=== PATIENT | female | born 1950 | race Caucasian/White ===

== ENCOUNTER 2018-03-11 05:46 | Day surgery (SDC) | payer MEDICARE, OTHER ==
[2018-03-11] MEDS: IV RINGERS,LACTATED 1000ML 1,000 ML IV (06:55)
[2018-03-11] MEDS ORDERED: PROCHLORPERAZINE 10 MG/2 ML VIAL. IV (07:00)
[2018-03-11] MEDS ORDERED: LIDOCAINE 1% PF 2 ML VIAL. ID (07:00)
[2018-03-11] MEDS ORDERED: MORPHINE SULFATE 2 MG/ML DISP.SYRIN. IV (07:00)
[2018-03-11] MEDS ORDERED: ONDANSETRON PF 4 MG/2 ML VIAL. IV (07:00)
[2018-03-11] MEDS ORDERED: HYDROmorphone 2 MG/ML VIAL IV (07:00)
[2018-03-11] MEDS ORDERED: fentaNYL PF VIAL 100 MCG/2 ML VIAL IV (07:00)
[2018-03-11] MEDS ORDERED: fentaNYL PF VIAL 100 MCG/2 ML VIAL (07:23)
[2018-03-11] MEDS ORDERED: MIDAZOLAM HCL/PF 2 MG/2 ML VIAL. (07:23)
[2018-03-11] MEDS ORDERED: LIDOCAINE 1% PF 5 ML VIAL. (07:24)
[2018-03-11] MEDS ORDERED: PROPOFOL 20 ML IV (07:24)
[2018-03-11] MEDS ORDERED: DEXAMETHASONE SOD PHOS 20 MG/5 ML VIAL. (08:20)
[2018-03-11] MEDS ORDERED: ONDANSETRON PF 4 MG/2 ML VIAL. (08:20)
[2018-03-11] MEDS ORDERED: SEVOFLURANE 31 TO 60 MINUTES. IH (08:21)
[2018-03-11] MEDS ORDERED: LABETALOL 20 MG/4 ML DISP.SYRIN. (08:37)
[2018-03-11] MEDS: LABETALOL 20 MG/4 ML DISP.SYRIN. IVP (08:39)
[2018-03-11] MEDS: fentaNYL PF VIAL 100 MCG/2 ML VIAL IV (08:56)
[2018-03-11] MEDS: traMADol 50 MG TABLET PO (09:42)
== END 2018-03-11 12:07 | disposition home or self-care (01) ==
LOC: SURG 05:46
DX: M67.432 Ganglion, left wrist (principal); M65.4 Radial styloid tenosynovitis [de Quervain]; I10 Essential (primary) hypertension; E78.00 Pure hypercholesterolemia, unspecified; J45.909 Unspecified asthma, uncomplicated; K21.9 Gastro-esophageal reflux disease without esophagitis; F32.9 Major depressive disorder, single episode, unspecified; M19.90 Unspecified osteoarthritis, unspecified site; Z98.890 Other specified postprocedural states; Z90.710 Acquired absence of both cervix and uterus; Z87.891 Personal history of nicotine dependence; F12.90 Cannabis use, unspecified, uncomplicated; Z88.8 Allergy status to other drugs, medicaments and biological substances; Z86.711 Personal history of pulmonary embolism; Z72.89 Other problems related to lifestyle; D64.9 Anemia, unspecified; Z85.828 Personal history of other malignant neoplasm of skin; Z79.82 Long term (current) use of aspirin; Z79.899 Other long term (current) drug therapy; Z86.14 Personal history of Methicillin resistant Staphylococcus aureus infection
CPT/HCPCS: 25111; 88305; A7015; J0690; J1100; J2250; J2405; J2704; J3010; J3490

== ENCOUNTER → 2018-07-03 | Outpatient (CLI) | payer MEDICARE, OTHER ==
[2018-03-11 10:02] VITALS: BP 139/74
[~2018-07-03] MED LIST: ACET-1550 PO; AMLO5TAB2 PO; ASPI-630 PO; ATOR20TA58 PO; CALC-30 PO; CHOL10003 PO; ESCITALOPRAM OX20 MG PO; FLUT9.9S NS; HYDR25TA9 PO; OXYB5TAB7 PO; PANT40GR PO; PRAM0.255 PO; TRAM50TA PO; VENTOLIN HFA18 GM INH; VITA400C36 PO
--- NOTE | 2018-07-03 16:08 | KCIC ---
MRI Lumbar Spine without contrast History: Sciatica bilaterally, progressive left leg and left knee pain in recent months Technique: Multiplanar, multi sequential noncontrast MR imaging was performed of the lumbar spine. Contrast: None Comparison: None Findings: There appears to be transitional anatomy. For the purpose of this report, the most inferior fully formed although rudimentary intervertebral disc space is considered L5-S1. There is negligible anterior spondylolisthesis at what is considered L4-5. There is advanced degenerative disc disease L3-4 and L4-5 and to lesser degree at L2-3, minimally at L1-2. There is degenerative endplate change and edema at L3-4 and L4-5, no fluid in the intervertebral disc spaces. There is posterior annular tear L2-3. There is likely hemangioma anteriorly at T12. Conus terminates at L1-2. There is very minimal edema of the right L4 and left L4 and L5 pedicles extending to the facet articular processes likely reactive/degenerative in etiology. L2-L3: There is disc osteophyte complex and bulge. Neural foramina are overall adequate. There is mild buckling of the ligamentum flavum and facet hypertrophic change. Spinal canal is overall adequate. L3-L4: There is disc osteophyte complex and bulge/broad protrusion. There is moderate buckling of the ligamentum flavum and right greater than left facet hypertrophic change. Combination of findings results in fairly severe spinal stenosis, limited preserved subarachnoid space, lateral recess stenosis bilaterally somewhat greater on the left. There is moderate to severe narrowing of the right neural foramen, left neural foramen adequate. L4-L5: There is fairly severe facet degenerative change and moderate to severe buckling of the ligamentum flavum. There is posterior disc osteophyte complex. Combination of findings results in moderate to severe spinal stenosis, very limited preserved subarachnoid space. There is fairly severe left and moderate right neural foramina compromise. L5-S1: Spinal canal and neural foramina are adequate. Impression: 1. There is transitional anatomy of the lumbar spine, most inferior fully formed although rudimentary intervertebral disc space considered L5-S1 for this report. 2. There is fairly severe spinal stenosis at L3-4 and to a somewhat lesser degree at L4-5. 3. There is neural foramina compromise, more significant narrowing on the right at L3-4 and left greater than right at L4-5. 4. There is advanced degenerative disc disease L3-4 and L4-5, endplate edema at these levels likely reactive/degenerative in etiology. There is spondylosis greatest at the same levels. Electronically signed by: Dev Joy MD (07/03/2018 4:05 PM) [facility]-[email or web address]
== END | disposition home or self-care (01) ==
LOC: KCIC MRI 15:09
PROVIDERS: ATTEND Orthopaedic Surgery
DX: M51.36 Other intervertebral disc degeneration, lumbar region (principal); M47.896 Other spondylosis, lumbar region; M48.061 Spinal stenosis, lumbar region without neurogenic claudication; M25.78 Osteophyte, vertebrae; M51.26 Other intervertebral disc displacement, lumbar region; I10 Essential (primary) hypertension; Z88.8 Allergy status to other drugs, medicaments and biological substances; Z72.89 Other problems related to lifestyle; Z79.899 Other long term (current) drug therapy; E78.00 Pure hypercholesterolemia, unspecified; K21.9 Gastro-esophageal reflux disease without esophagitis; Z86.2 Personal history of diseases of the blood and blood-forming organs and certain disorders involving the immune mechanism; Z86.711 Personal history of pulmonary embolism; Z85.828 Personal history of other malignant neoplasm of skin; Z87.891 Personal history of nicotine dependence; Z86.14 Personal history of Methicillin resistant Staphylococcus aureus infection
CPT/HCPCS: 72148

== ENCOUNTER → 2018-08-07 | Outpatient (CLI) | payer MEDICARE, OTHER ==
[2018-03-11 10:02] VITALS: BP 139/74
[~2018-08-07] MED LIST changes: -AMLO5TAB2 PO; +AMLO5TAB7 PO; +HYDR-2758 PO; +METH750T2 PO; +TRIA1CAP3 PO
[2018-08-07 13:54] LABS: BASO # 0.1 x10^3/uL (0.0-0.2); BASO % 1 % (0-3); EOS # 0.8 x10^3/uL (0.0-0.7); EOS % 9 % (0-3); HEMATOCRIT 33.9 % (36.0-47.0); HEMOGLOBIN 11.3 g/dL (12.0-15.5); LYMPH # 2.4 x10^3/uL (1.0-4.8); LYMPH % 29 % (24-48); MEAN CORPUSCULAR HEMOGLOBIN 26 pg (25-35); MEAN CORPUSCULAR HGB CONC 33 g/dL (31-37); MEAN CORPUSCULAR VOLUME 78 fL (79-100); MONO # 0.4 x10^3/uL (0.0-1.1); MONO % 5 % (0-9); NEUT # 4.7 x10^3uL (1.8-7.7); NEUT % 56 % (31-73); PLATELET COUNT 280 x10^3/uL (140-400); RED BLOOD COUNT 4.35 x10^6/uL (3.50-5.40); RED CELL DISTRIBUTION WIDTH 18.9 % (11.5-14.5); WHITE BLOOD COUNT 8.4 x10^3/uL (4.0-11.0)
--- NOTE | 2018-08-07 14:12 | EKG ---
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
[2018-08-07 14:22] LABS: ALBUMIN 3.9 g/dL (3.4-5.0); ALBUMIN/GLOBULIN RATIO 1.1 (1.0-1.7); CALCIUM 10.1 mg/dL (8.5-10.1); CREATININE 0.9 mg/dL (0.6-1.0); GFR 62.3; POTASSIUM 3.5 mmol/L (3.5-5.1); TOTAL BILIRUBIN 0.4 mg/dL (0.2-1.0); TOTAL PROTEIN 7.4 g/dL (6.4-8.2)
--- NOTE | 2018-08-12 13:40 | HP ---
ADMIT DATE: 08/13/2018 DATE OF SURGERY: 08/13/2018 HISTORY OF PRESENT ILLNESS: The patient is a pleasant 67-year-old who has problems with low back pain and left greater than right leg pain. The problem started after a fall 10 years ago. She rates her pain as 5/10 with medications and says that it becomes excruciating without medication. Ice occasionally helps her. Activity makes the problem worse. She has been taking naproxen and Tylenol. She has no conservative measures done thus far. She denies weakness in her lower extremities. PAST MEDICAL HISTORY: Hypertension, hyperlipidemia and arthritis. PAST SURGICAL HISTORY: Hysterectomy, skin cancer removal, throat polyp removal. FAMILY HISTORY: Noncontributory. SOCIAL HISTORY: Retired. . Quit smoking greater than 10 years ago. Drinks alcohol 1-2 times per month. ALLERGIES: NIACIN. CURRENT MEDICATIONS: Naproxen, Tylenol, Ventolin, aspirin 81 mg, vitamin D, Benadryl, calcium, Flonase, DuoNeb, escitalopram oxalate, pantoprazole, oxybutynin, pramipexole,hydrochlorothiazide, triamterene, atorvastatin, calcium. REVIEW OF SYSTEMS: A 12-point review of systems was obtained and is noncontributory except for that mentioned above. PHYSICAL EXAMINATION: NEUROSURGERY EXAMINATION: GENERAL APPEARANCE: Alert, pleasant, no acute distress. HEAD: Normocephalic, atraumatic. SKIN: Warm and dry. MUSCULOSKELETAL: Lumbar paraspinal muscle bulk is normal, restricted range of motion of the lumbar spine, [id number] tenderness of the lower lumbar spine with palpation, normal range of motion of the lower extremities bilaterally. EXTREMITIES: No clubbing, cyanosis or edema. NEUROLOGIC: Alert and oriented x 3, normal recent and remote memory, strength 5/5 in bilateral lower extremities, sensory was intact to light touch in bilateral lower extremities. Reflexes are present and symmetric in the lower extremities bilaterally, negative straight leg raising bilaterally, normal gait. IMAGING: I reviewed a lumbar MRI scan from 07/03/2018. On that study, there is moderately severe stenosis at L3-L4, to a lesser extent at L4-L5. ASSESSMENT/ PLAN: At this point, I would recommend a lumbar decompression L3-L4 and L4-L5. I discussed this with her as well as the surgical procedure and postoperative course and risks. She understands and would like to proceed. We will make the arrangements. KEELY WOODS MD DR: RAIN/sherlyn JOB#: [id number] / [id number] JOO
== END | disposition home or self-care (01) ==
LOC: SURGPAT 13:19
PROVIDERS: ATTEND Neurological Surgery
DX: Z01.818 Encounter for other preprocedural examination (principal); M48.062 Spinal stenosis, lumbar region with neurogenic claudication; M54.16 Radiculopathy, lumbar region; I10 Essential (primary) hypertension; E78.5 Hyperlipidemia, unspecified; M19.90 Unspecified osteoarthritis, unspecified site
CPT/HCPCS: 36415; 80053; 85025; 87641; 93005

== ENCOUNTER 2018-08-13 10:35 | Observation (INO) | payer MEDICARE, OTHER ==
[~2018-08-13] VITALS: Ht 162.6 cm; Wt 58.5 kg
[2018-08-13] VITALS (10 sets, daily range): BP systolic 106–126; BP diastolic 49–75
[~2018-08-13 10:35] MED LIST changes: +BACITRACIN 50,000 UNIT in IV NORMAL SALINE 1000ML BAG 1,000 ML IRR ONE; +BUPIVAC MPF-EPI 0.5%-1:200000 30 ML VIAL. INJ ONE; +DEXAMETHASONE SOD PHOS 20 MG/5 ML VIAL. ONE; +GELATIN SPONGE SIZE 100. ONE; -HYDR-2758 PO; +HYDROmorphone 2 MG/ML VIAL IV PRN; +IV RINGERS,LACTATED 1000ML 1,000 ML IV SCH; +KETOROLAC 60 MG/2 ML INJ FOR OR. ONE; +LIDOCAINE 1% PF 2 ML VIAL. ID PRN; -METH750T2 PO; +ONDANSETRON PF 4 MG/2 ML VIAL. IV PRN; +ONDANSETRON PF 4 MG/2 ML VIAL. ONE; +PROCHLORPERAZINE 10 MG/2 ML VIAL. IV PRN; +PROPOFOL 20 ML IV ONE; +PROPOFOL 50 ML IV ONE; +REMIFENTANIL 2 MG VIAL. IV ONE; +ROCURONIUM 50 MG/5 ML VIAL. ONE; +THROMBIN TOPICAL 20,000 UNIT SPRAY.SYRN KIT TP ONE; +fentaNYL PF VIAL 100 MCG/2 ML VIAL IV PRN
[2018-08-13] MEDS ORDERED: fentaNYL PF VIAL 100 MCG/2 ML VIAL ONE ×2 (12:15→14:32)
[2018-08-13] MEDS ORDERED: PHENYLEPHRINE in 0.9% NACL PF 1 MG/10 ML SYRINGE. IV ONE (12:38)
[2018-08-13] MEDS ORDERED: ePHEDrine PF IN SALINE 50 MG/5 ML DISP.SYRIN IV ONE (12:38)
[2018-08-13] MEDS ORDERED: GLYCOPYRROLATE 1 MG/5 ML VIAL. ONE (12:57)
[2018-08-13] MEDS ORDERED: PHENYLEPHRINE 10 MG/ML VIAL. ONE (13:22)
[2018-08-13] MEDS ORDERED: NEOSTIGMINE METHYLSULFATE 5 MG/5 ML SYRINGE. ONE (14:21)
[2018-08-13] MEDS ORDERED: PROCHLORPERAZINE 10 MG/2 ML VIAL. ONE (14:33)
[2018-08-13] MEDS ORDERED: diphenhydrAMINE HCL 25 MG CAPSULE PO PRN (14:45)
[2018-08-13] MEDS ORDERED: CALCIUM CARBONATE 500 MG TAB.CHEW PO PRN (14:45)
[2018-08-13] MEDS ORDERED: NON FORMULARY ITEM (Albuterol Sulfate (Ventolin Hfa Inhaler) 2 PUFF) INH PRN (14:45)
[2018-08-13] MEDS ORDERED: OXYBUTYNIN CHLORIDE 5 MG TABLET PO PRN (14:45)
[2018-08-13] MEDS ORDERED: ONDANSETRON PF 4 MG/2 ML VIAL. IV PRN (14:45)
[2018-08-13] MEDS ORDERED: MAG HYDROX/ALUMINUM HYD/SIMETH 30 ML ORAL.SUSP PO PRN (14:45)
[2018-08-13] MEDS ORDERED: 0.9 % SODIUM CHLORIDE 10 ML DISP.SYRIN. IV PRN (14:45)
[2018-08-13] MEDS ORDERED: MAGNESIUM HYDROXIDE 2,400 MG/30 ML ORAL.SUSP. PO PRN (14:45)
[2018-08-13] MEDS ORDERED: HYDROcodone/APAP 5/325MG 1 TAB TABLET PO PRN (14:45)
[2018-08-13] MEDS ORDERED: ACETAMINOPHEN 325 MG TABLET. PO PRN (14:45)
[2018-08-13] MEDS ORDERED: fentaNYL PF VIAL 100 MCG/2 ML VIAL IV PRN (14:45)
[2018-08-13] MEDS ORDERED: IPRATRPIUM/ALBUTEROL 0.5/2.5MG 3 ML NEBU. ONE (14:59)
--- NOTE | 2018-08-13 15:00 | OP ---
DATE OF SURGERY: 08/13/2018 PREOPERATIVE DIAGNOSES: Lumbar spinal stenosis L3-L4 and L4-L5 with left lumbar radiculopathy. POSTOPERATIVE DIAGNOSES: Lumbar spinal stenosis L3-L4 and L4-L5 with left lumbar radiculopathy. OPERATION PERFORMED: Lumbar laminectomy, L3-L4, L4-L5 left direct decompression of dura and nerve root; partial foraminotomies, L3-L4 and L4-L5, left. The operation was done with EMG monitoring, fluoroscopy, microscopic dissection, SSEP monitoring. SURGEON: Austin Woods M.D. TRAVEL NURSE: STEFANO Disla assisted with the surgery. She assisted with the exposure, the 2-level microdecompression as well as the closure. OPERATIVE INDICATIONS: The patient is a very pleasant 67-year-old woman who developed intractable back and left leg pain and failed conservative measures. On imaging studies, she had the above-mentioned findings and I recommended lumbar microsurgical decompression at both levels. She understood the surgery and the risks, the technique and the expected postoperative course. She wished to go ahead. DESCRIPTION OF PROCEDURE: Following general endotracheal anesthesia, the patient was positioned prone on Basilio table. Lumbar region prepped and draped in a standard fashion. CHRISTIANO hose and AV impulse boots were applied for DVT prophylaxis. A microscope was draped. Fluoroscopy was draped and brought into field and monitoring was established. Ancef 1 gram was given less than 1 hour prior to initiation of the surgery. Using fluoroscopic guidance, a midline incision was made from L3-L5. I dissected down through skin, subcutaneous tissue, reflected the paraspinal muscles on left and placed a [place] micro disc retractors. I confirmed my position fluoroscopically and directed my attention to the L4-L5 region. I, through the microscope using microscopic technique, burred down a very generous hemilaminotomy. There was considerably thickened ligamentum markedly protruding into the canal and markedly compressing the dura and I gently worked and freed this ligament from the surrounding dura and then peeled this away from medial to lateral. I trimmed laterally and performed a generous partial foraminotomy with a high speed air drill as well as the 2.5-mm angled [place] and then following this, I explored carefully. The disc was firm and no discectomy was warranted. I fully decompressed the entire region. I then tilted the bed away from me and trimmed across the midline and removed fat from across the midline and decompressed the contralateral side and then, I irrigated copiously. I did use small amounts of bone wax. I used the bipolar cautery for a few epidural veins. I placed Gelfoam over the laminotomy site. I then moved up to L3-L4 and in a similar fashion, confirmed my position fluoroscopically, burred down a generous hemilaminotomy, trimmed away very thickened ligamentum flavum beginning medially and feeling laterally. I felt at L4-L5, stenosis was especially lateral recess stenosis and worse than at L3-L4. There was considerable stenosis and compression at L3-L4 and I relieved this. I then tilting across and going across the contralateral side and decompressing. I irrigated copiously with antibiotic solution. I performed a generous partial foraminotomy. I palpated the disc, which was very firm and no discectomy was warranted. I did coagulate a few epidural veins. At this point, then I irrigated copiously. I removed the retractor, obtained hemostasis in the muscle and I closed the wound in layers with absorbable suture and skin was closed with 4-0 subcuticular stitch. The operation went very well and the patient was awakened uneventfully. I was quite pleased with the surgery. AUSTIN WOODS MD DR: RAIN/sherlyn JOB#: [id number] / [id number] JOO
[2018-08-13] MEDS: fentaNYL PF VIAL 100 MCG/2 ML VIAL IV PRN ×2 (15:04→15:10)
[2018-08-13] MEDS: IPRATRPIUM/ALBUTEROL 0.5/2.5MG 3 ML NEBU. NEB PRN ×2 (15:05→16:19)
[2018-08-13] MEDS ORDERED: MORPHINE SULFATE 2 MG/ML VIAL. ONE (15:18)
[2018-08-13] MEDS: MORPHINE SULFATE 2 MG/ML VIAL. IV PRN ×2 (15:24→15:35)
[2018-08-13] MEDS: METHOCARBAMOL 750 MG TABLET PO SCH ×2 (15:34→21:13)
[2018-08-13] MEDS ORDERED: ALBUTEROL SULFATE 2.5 MG/3 ML NEBU. NEB PRN (15:45)
[2018-08-13] MEDS: amLODIPine BESYLATE 5 MG TABLET PO SCH (16:00)
[2018-08-13] MEDS: PANTOPRAZOLE 40 MG TABLET.DR. PO SCH (16:30)
[2018-08-13] MEDS: POTASSIUM CL 20MEQ D5-0.45NACL 1,000 ML IV SCH (16:34)
[2018-08-13] MEDS ORDERED: ACETAMINOPHEN 500 MG TABLET PO SCH (21:00)
[2018-08-13] MEDS ORDERED: diphenhydrAMINE HCL 25 MG CAPSULE PO SCH (21:00)
[2018-08-13] MEDS ORDERED: ATORVASTATIN CALCIUM 20 MG TABLET PO SCH (21:00)
[2018-08-13] MEDS ORDERED: PRAMIPEXOLE 0.25 MG TABLET. PO SCH (21:00)
[2018-08-13] MEDS: DOCUSATE SODIUM 100 MG CAPSULE. PO SCH (21:13)
[2018-08-13] MEDS: HYDROcodone/APAP 5/325MG 1 TAB TABLET PO PRN (23:47)
[2018-08-14 03:00] VITALS: BP 93/58
[2018-08-14] MEDS: POTASSIUM CL 20MEQ D5-0.45NACL 1,000 ML IV SCH (03:55)
[2018-08-14 05:56] VITALS: BP 97/69
[2018-08-14] MEDS: PANTOPRAZOLE 40 MG TABLET.DR. PO SCH (06:56)
[2018-08-14] MEDS: HYDROcodone/APAP 5/325MG 1 TAB TABLET PO PRN (06:58)
[2018-08-14] MEDS ORDERED: CALCIUM CARB/VIT D3 500/200 TABLET. PO SCH (08:00)
[2018-08-14] MEDS: METHOCARBAMOL 750 MG TABLET PO SCH (08:16)
[2018-08-14] MEDS: DOCUSATE SODIUM 100 MG CAPSULE. PO SCH (08:16)
[2018-08-14 08:17] VITALS: BP 112/68
[2018-08-14] MEDS: amLODIPine BESYLATE 5 MG TABLET PO SCH (09:00)
[2018-08-14] MEDS ORDERED: ASPIRIN CHEWABLE 81 MG TABLET. PO SCH (09:00)
[2018-08-14] MEDS ORDERED: TRIAMTERENE/HCTZ 37.5/25MG TABLET. PO SCH (09:00)
[2018-08-14] MEDS ORDERED: CHOLECALCIFEROL (VITAMIN D3) 1,000 UNIT TABLET PO SCH (09:00)
[2018-08-14] MEDS ORDERED: FLUTICASONE 50MCG/NASAL SPRAY 16GM BOTTLE. NS PRN (09:00)
--- NOTE | 2018-08-14 10:03 | DISCH ---
DISCHARGE INSTRUCTIONS Condition on Discharge Condition on Discharge: Stable Activity After Discharge Activity Instructions for Disc: Activity as tolerated, Avoid exertion, Other, see below Other activity instructions: no driving for a week Bathing Instructions: Shower-keep dressing dry Lifting Instructions after Dis: No heavy lifting, No pulling or pushing, Do not lift >10 pounds Diet after Discharge Diet after Discharge: Regular Additional Diet Restrictions: resume home diet Wound Incision Care Wound/Incision Care: Ice to area for comfort, Change dressing Other wound/incision instructi: may remove dressing tomorrow if dry then may shower- no soaking Contacting the after DC Call your doctor for: Concerns you may have Follow-Up Follow up with: Dr. Woods's nurse in 2 weeks [phone] KEELY WOODS MD Aug 14, 2018 10:03
[2018-08-14] MEDS ORDERED: HYDR-2758 PO (10:05)
[2018-08-14] MEDS ORDERED: METH750T2 PO (10:05)
[2018-08-14 11:00] VITALS: BP 122/70
--- NOTE | 2018-08-14 12:10 | DS ---
DATE OF DISCHARGE: 08/14/2018 DISCHARGE DIAGNOSES: Lumbar spinal stenosis, L3-L4 and L4-L5 with left lumbar radiculopathy. OPERATION PERFORMED: Lumbar laminectomy, L3-L4 and L4-L5 left direct with partial foraminotomies, L3-L4 and L4-L5 left. HISTORY OF PRESENT ILLNESS: The patient is a very pleasant 67-year-old woman who developed intractable back and left leg pain and failed to improve with conservative measures. On imaging studies, she had the above-mentioned findings and I recommended lumbar microsurgical decompression at both levels. She understood the surgery and the risks and the expected postoperative course and wished to proceed. HOSPITAL COURSE: She has been admitted to the floor postoperatively, she has done well. She has been up ambulating in the room and in the halls. Physical therapy was initiated and instruction was given to her regarding her activities. Her pain is well controlled and she is in good condition to discharge home. DISCHARGE MEDICATIONS: She will resume her medications per the MRAD. DISCHARGE INSTRUCTIONS: She was instructed regarding incision care, activity restrictions and expectations for the next several weeks. She will follow up in our office in 2 weeks. She understands to call with any questions or concerns. KEELY WOODS MD DR: ISAIAH/sherlyn JOB#: [id number] / [id number]
--- NOTE | 2018-08-15 14:55 | HP ---
ADMIT DATE: Jeff Marin RN dictating for Austin Woods MD DATE OF SURGERY: 08/13/2018 HISTORY OF PRESENT ILLNESS: The patient is a pleasant 67-year-old who has problems with low back pain and left greater than right leg pain. The problem started after a fall 10 years ago. She rates her pain as 5/10 with meds and says that it becomes excruciating without medication. Ice occasionally helps her. Activity makes the problem worse. She has been taking naproxen and Tylenol. She has no conservative measures done thus far. She denies weakness in her lower extremities. PAST MEDICAL HISTORY: Hypertension, hyperlipidemia and arthritis. PAST SURGICAL HISTORY: Hysterectomy, skin cancer removal, throat polyp removal. FAMILY HISTORY: Noncontributory. SOCIAL HISTORY: Retired. . Quit smoking greater than 10 years ago. Drinks alcohol 1-2 times per month. ALLERGIES: NIACIN. CURRENT MEDICATIONS: Naproxen, Tylenol, Ventolin, aspirin 81 mg, vitamin D, Benadryl, calcium, Flonase, DuoNeb, escitalopram oxalate, pantoprazole, oxybutynin, pramipexole, hydrochlorothiazide, triamterene, atorvastatin, calcium. REVIEW OF SYSTEMS: A 12-point review of systems was obtained and is noncontributory except for that mentioned above. PHYSICAL EXAMINATION: NEUROSURGERY EXAMINATION: GENERAL APPEARANCE: Alert, pleasant, no acute distress. HEAD: Normocephalic, atraumatic. SKIN: Warm and dry. MUSCULOSKELETAL: Lumbar paraspinal muscle bulk is normal, restricted range of motion of the lumbar spine, [id number] tenderness of the lower lumbar spine with palpation, normal range of motion of the lower extremities bilaterally. EXTREMITIES: No clubbing, cyanosis or edema. NEUROLOGIC: Alert and oriented x 3, normal recent and remote memory, strength 5/5 in bilateral lower extremities, sensory was intact to light touch in bilateral lower extremities. Reflexes are present and symmetric in the lower extremities bilaterally, negative straight leg raising bilaterally, normal gait. IMAGING: Reviewed. I reviewed a lumbar MRI scan from 07/03/2018. On that study, there is moderately severe stenosis at L3-L4, to a lesser extent at L4-L5. ASSESSMENT: 1. Spinal stenosis, lumbar region with neurogenic claudication. 2. Radiculopathy, lumbar region. PLAN: At this point, I would recommend a lumbar decompression L3-L4 and L4-L5. I discussed this with her as well as the surgical procedure and postoperative course and risks. She understands and would like to proceed. We will make the arrangements. AUSTIN WOODS MD DR: RAIN/sherlyn JOB#: [id number] / [id number]
--- NOTE | 2018-08-15 15:08 | PATHOLOGY ---
[facility] Accession Number: [id number] . 01 Material submitted: . LUMBAR DECOMPRESSION . 01 Clinical history: . Lumbar stenosis and neurogenic claudication, radiculopathy . 02 Diagnosis: Lumbar decompression: - Fragments of reactive bone and fibrocartilage. - Fragment of unremarkable skeletal muscle. . 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 02 Electronically signed: . Issa Sheppard MD, Pathologist NPI- [id number] . 01 Gross description: . Received in formalin labeled "Fide Mckee, lumbar decompression," are several pieces of glistening, fibrous tissue measuring 4.3 x 3.9 x 0.8 cm in aggregate dimensions, containing small fragments of bone. The tissue submitted representatively in cassette A1, following decalcification. (TSD; 08/13/2018) TOB/TOB . 02 Pathologist provided ICD-10: M48.061 . 02 CPT . 154395, [id number] Specimen Comment: A courtesy copy of this report has been sent to Specimen Comment: [phone], . Specimen Comment: Report sent to / DR MCDONALD Performed at: [address] [facility], [place], [place] [id number] MD Madi Roland MD Phone: [phone] Performed at: [address] [facility] [id number] MD Anabell Floyd MD Phone: [phone]
== END 2018-08-14 11:20 | disposition home or self-care (01) ==
LOC: SURG 10:35 → 4 SOUTHEST 14:35
PROVIDERS: ADMIT Neurological Surgery; ATTEND Neurological Surgery
DX: M48.062 Spinal stenosis, lumbar region with neurogenic claudication (principal); E78.5 Hyperlipidemia, unspecified; I10 Essential (primary) hypertension; M54.16 Radiculopathy, lumbar region; K21.9 Gastro-esophageal reflux disease without esophagitis; E78.00 Pure hypercholesterolemia, unspecified; Z85.828 Personal history of other malignant neoplasm of skin; Z90.710 Acquired absence of both cervix and uterus
CPT/HCPCS: 63047; 63048; 76000; 90471; 90756; 97162; 97530; A7015; G0378; G0379; G8978; G8979; G8980; J0690; J0780; J1100; J1885; J2270; J2370; J2405; J2704; J2710; J3010; J3490; J7030; J7620; Q0163; Q2035

== ENCOUNTER → 2018-10-13 | Outpatient (CLI) | payer MEDICARE, OTHER ==
[~2018-10-13] MED LIST changes: -BACITRACIN 50,000 UNIT in IV NORMAL SALINE 1000ML BAG 1,000 ML IRR ONE; -BUPIVAC MPF-EPI 0.5%-1:200000 30 ML VIAL. INJ ONE; -DEXAMETHASONE SOD PHOS 20 MG/5 ML VIAL. ONE; -GELATIN SPONGE SIZE 100. ONE; +HYDR-2145 PO; +HYDR-2761 PO; -HYDR25TA9 PO; -HYDROmorphone 2 MG/ML VIAL IV PRN; -IV RINGERS,LACTATED 1000ML 1,000 ML IV SCH; -KETOROLAC 60 MG/2 ML INJ FOR OR. ONE; -LIDOCAINE 1% PF 2 ML VIAL. ID PRN; +METH750T2 PO; -ONDANSETRON PF 4 MG/2 ML VIAL. IV PRN; -ONDANSETRON PF 4 MG/2 ML VIAL. ONE; -PROCHLORPERAZINE 10 MG/2 ML VIAL. IV PRN; -PROPOFOL 20 ML IV ONE; -PROPOFOL 50 ML IV ONE; -REMIFENTANIL 2 MG VIAL. IV ONE; -ROCURONIUM 50 MG/5 ML VIAL. ONE; -THROMBIN TOPICAL 20,000 UNIT SPRAY.SYRN KIT TP ONE; -fentaNYL PF VIAL 100 MCG/2 ML VIAL IV PRN
--- NOTE | 2018-10-13 12:37 | KCIC ---
MRI of the cervical spine without contrast 10/13/2018 CLINICAL HISTORY: Neck pain and headaches which radiates down the left arm. TECHNIQUE: Unenhanced T1-weighted, T2-weighted and inversion recovery sagittal and gradient echo and T2-weighted axial images of the cervical spine were obtained. FINDINGS: Minimal lateral curvature of the cervical spine is seen convex to the right. There is straightening of the normal cervical lordosis. Degenerative signal changes are seen involving all of the disks of the cervical spine. Loss of height of the C5-6 and C6-7 discs is noted. Degenerative signal changes are seen within the marrow surrounding these discs. No area of abnormal signal intensity are seen involving the cervical spinal cord. At the C2-3 and C3-4 disc spaces there are minimal to mild generalized disc bulges. Degenerative changes are seen involving the uncovertebral and facet joints bilaterally. These findings do not result in significant central spinal canal or neural foraminal stenosis. At the C4-5 disc space there is a mild to moderate generalized disc bulge. This is eccentric to the right. Degenerative changes are seen involving the uncovertebral and facet joints, right greater than left. These findings efface the anterior CSF resulting in mild central spinal canal stenosis without evidence of cord impingement. Mild right neural foraminal stenosis is seen. The left neural foramen is patent. At the C5-6 disc space there is a mild to moderate generalized disc bulge. Degenerative changes are seen involving the uncovertebral and facet joints, right greater than left. These findings efface the anterior and posterior CSF resulting in mild central spinal canal stenosis without evidence of cord impingement. Mild to moderate right neural foraminal stenosis is seen. The left neural foramen is patent. At the C6-7 disc space there is a mild to moderate generalized disc bulge. Superimposed on this disc bulge is a left paracentral focal disc protrusion. This measures 3 mm in AP diameter. Degenerative changes are seen involving the uncovertebral and facet joints, left greater than right. These findings when combine result in mild left greater than right central spinal canal stenosis without evidence of cord impingement. No neural foraminal stenosis is seen. At the C7-T1 disc space there is a minimal generalized disc bulge. Degenerative changes are seen involving the facet joints bilaterally. These findings do not result in significant central spinal canal or neural foraminal stenosis. IMPRESSION: Degenerative changes are seen throughout the cervical spine. These findings result in mild central spinal canal stenosis at C4-5 and C5 segments with mild left greater than right central spinal canal stenosis at C6-7 without evidence of cord impingement. Mild right neural foraminal stenosis is seen at C4-5. Mild to moderate right neural foraminal stenosis is seen at C5-6. Electronically signed by: Jitendra Vanegas MD (10/13/2018 12:33 PM) [facility]
== END | disposition home or self-care (01) ==
LOC: KCIC MRI 08:33
PROVIDERS: ATTEND Neurological Surgery
DX: M50.31 Other cervical disc degeneration, high cervical region (principal); M48.02 Spinal stenosis, cervical region; M50.223 Other cervical disc displacement at C6-C7 level
CPT/HCPCS: 72141

== ENCOUNTER → 2019-01-15 | Outpatient (CLI) | payer MEDICARE, OTHER ==
[~2019-01-15] MED LIST changes: +AMLO5TAB10 PO; -AMLO5TAB7 PO; +GADOBUTROL 7.5 MMOL/7.5 ML VIAL IV ONE
--- NOTE | 2019-01-15 12:33 | KCIC ---
EXAM: Lumbar spine MRI without and with contrast. HISTORY: Radiculopathy. TECHNIQUE: Multiplanar, multisequence magnetic resonance imaging of the lumbar spine was performed prior to and following the administration of 5 cc Gadavist intravenous contrast. COMPARISON: 07/03/2018 FINDINGS: There is a transitional lumbosacral segment. For the purposes of this dictation and consistent with the prior report, the last segment is considered L5 with a rudimentary L5-S1 disc. Based on this numbering system, there is grade 1 anterolisthesis of L4 on L5, measuring 3 mm. There is grade 1 anterolisthesis of L3 on L4, measuring 3 mm. This is increased at both levels compared to the prior study. There is minimal retrolisthesis of T12 on L1, L1 on L2 and L2 on L3. There is lumbar scoliosis. There is degenerative endplate remodeling with disc space narrowing and osteophytosis primarily along the right aspect of L4-L5 and left aspect of L5-S1. This corresponds with the levels of maximum scoliotic curvature. There are endplate Schmorl's nodes at these levels. There are few osseous hemangiomas, the largest of which is seen at T12. There is no suspicious osseous lesion. There is no acute or subacute fracture. There is edema within the left greater than right posterior lower back and sacral soft tissues, likely dependent or inflammatory etiology. No fluid collection is seen. There are suspected incidental extrarenal pelves. At L1-L2, there is a disc bulge and endplate remodeling. There is mild bilateral facet arthropathy. There is mild bilateral foraminal stenosis. At L2-L3, there is a disc bulge and endplate osteophytosis. There is mild bilateral facet arthropathy. There is slight hypertrophy of the ligamentum flavum. There is mild central canal stenosis. At L3-L4, there is a posterior central to right paracentral disc protrusion superimposed on a disc bulge and right lateral predominant endplate osteophytosis. There is moderate to severe right and mild left facet arthropathy. There are hemilaminectomy changes. There is grade 1 anterolisthesis. There is moderate right foraminal stenosis. There is mild central canal stenosis. At L4-L5, there is a diffuse disc bulge and left lateral predominant endplate osteophytosis. There is severe bilateral facet arthropathy. There are hemilaminectomy changes. There is grade 1 anterolisthesis. There is severe left foraminal stenosis. There is mild central canal stenosis. At L5-S1, there is a rudimentary disc at this level. There is no stenosis. IMPRESSION: 1. Interval hemilaminectomy changes at L3-L4 and L4-L5. There has been associated interval decrease in central canal stenosis at these levels compared to the prior study. There is persistent moderate right foraminal stenosis at L3-L4 and severe left foraminal stenosis at L4-L5 due to degenerative changes. There has been slight interval increase and grade 1 anterolisthesis at both levels compared to the prior study. 2. Multilevel degenerative change throughout the remainder of the lumbar spine, similar compared to the prior study. This results in stenosis as described above. 3. Transitional lumbosacral segment, considered L5 with a rudimentary L5-S1 for this dictation. 4. Edema within the posterior lower back and posterior sacral soft tissues, likely dependent or inflammatory in etiology. No fluid collection is seen. Electronically signed by: Marguerite Garcia MD (01/15/2019 12:30 PM) [email or web address]
== END | disposition home or self-care (01) ==
LOC: KCIC MRI 11:14
PROVIDERS: ATTEND Neurological Surgery
DX: M48.061 Spinal stenosis, lumbar region without neurogenic claudication (principal); M47.26 Other spondylosis with radiculopathy, lumbar region; M25.78 Osteophyte, vertebrae; M12.88 Other specific arthropathies, not elsewhere classified, other specified site; D18.09 Hemangioma of other sites
CPT/HCPCS: 72158; 82565; A9585

== ENCOUNTER 2019-08-02 21:55 | Emergency (ER) | payer MEDICARE, OTHER ==
[~2019-08-02] VITALS: Ht 165.1 cm; Wt 54.0 kg
[~2019-08-02 21:55] MED LIST changes: -ACET-1550 PO; +ACET-1797 PO; +ACET325T9 PO; +DOCU-109 PO; +FERR325T14 PO; -GADOBUTROL 7.5 MMOL/7.5 ML VIAL IV ONE; +NAPR220C4 PO; +OXYB5TAB10 PO; -OXYB5TAB7 PO; +OXYC1TAB15 PO; +VITA-8 PO; -VITA400C36 PO
[2019-08-02 22:22] LABS: BASO # 0.1 x10^3/uL (0.0-0.2); BASO % 1 % (0-3); EOS # 0.4 x10^3/uL (0.0-0.7); EOS % 5 % (0-3); HEMATOCRIT 45.4 % (36.0-47.0); HEMOGLOBIN 15.1 g/dL (12.0-15.5); LYMPH # 2.8 x10^3/uL (1.0-4.8); LYMPH % 34 % (24-48); MEAN CORPUSCULAR HEMOGLOBIN 30 pg (25-35); MEAN CORPUSCULAR HGB CONC 33 g/dL (31-37); MEAN CORPUSCULAR VOLUME 89 fL (79-100); MONO # 0.5 x10^3/uL (0.0-1.1); MONO % 6 % (0-9); NEUT # 4.4 x10^3/uL (1.8-7.7); NEUT % 54 % (31-73); PLATELET COUNT 236 x10^3/uL (140-400); RED BLOOD COUNT 5.12 x10^6/uL (3.50-5.40); RED CELL DISTRIBUTION WIDTH 14.9 % (11.5-14.5); WHITE BLOOD COUNT 8.1 x10^3/uL (4.0-11.0)
[2019-08-02 22:41] LABS: CALCIUM 10.2 mg/dL (8.5-10.1); CREATININE 0.9 mg/dL (0.6-1.0); GFR 62.1; POTASSIUM 3.4 mmol/L (3.5-5.1)
[2019-08-02 22:47] LABS: ALBUMIN 3.7 g/dL (3.4-5.0); ALBUMIN/GLOBULIN RATIO 0.9 (1.0-1.7); TOTAL BILIRUBIN 0.3 mg/dL (0.2-1.0); TOTAL PROTEIN 7.6 g/dL (6.4-8.2)
--- NOTE | 2019-08-03 00:20 | PHYS DOC ---
Past Medical History Past Medical History: Cancer, GERD, Hypertension Additional Past Medical Histor: skin CA Past Surgical History: Hysterectomy, Tubal ligation, Other Additional Past Surgical Histo: throat surg nos, Alcohol Use: Rarely Drug Use: None Adult General Chief Complaint Chief Complaint: CHEST PAIN HPI HPI Patient is a 68 year old female presents with left-sided chest wall pain intermittent 3 days. Patient denies fall or injury. Chest wall pain is brief self-limited and is described sharp worse with palpation and when leaning forward. No fevers chills, cough, sore throat, shortness of breath. No history of coronary disease, DVT or PE. No leg pain or swelling. No other acute symptoms or complaints.[] Review of Systems Review of Systems Symptoms as per history of present illness. All other systems were reviewed and found to be within normal limits, except as documented in this note. Current Medications Current Medications Current Medications Medications (Trade) Dose Ordered Sig/Caryn Start Time Stop Time Status Last Admin Dose Admin Info (CONTRAST GIVEN -- Rx MONITORING) 1 each PRN DAILY PRN 08/03/19 01:30 08/05/19 01:29 Iohexol (Omnipaque 350 Mg/ml) 90 ml 1X ONCE 08/03/19 01:30 08/03/19 01:31 DC 08/03/19 01:35 90 ML Oxycodone/ Acetaminophen (Percocet 10/325) 1 tab 1X ONCE 08/03/19 00:30 08/03/19 00:31 DC 08/03/19 00:18 1 TAB Allergies Allergies Allergies Coded Allergies Type Severity Reaction Last Updated Verified niacin Adverse Reaction Intermediate nausea 04/23/19 No Physical Exam Physical Exam Constitutional: Well developed, well nourished, no acute distress, non-toxic appearance. [] HENT: Normocephalic, atraumatic, bilateral external ears normal, oropharynx moist, no oral exudates, nose normal. [] Eyes: PERRLA, EOMI, conjunctiva normal, no discharge. [] Neck: Normal range of motion, no tenderness, supple, no stridor. [] Cardiovascular:Heart rate regular rhythm, no murmur, left lower rib pain under the left breast. No subcutaneous emphysema crepitus. [] Lungs & Thorax: Bilateral breath sounds clear to auscultation [] Abdomen: Bowel sounds normal, soft, no tenderness. [] Skin: Warm, dry. [] Back: No tenderness. [] Extremities: No tenderness, no edema. - Homans signs. [] Neurologic: Alert and oriented X 3, normal motor function, normal sensory function, no focal deficits noted. [] Psychologic: Affect normal, judgement normal, mood normal. [] Current Patient Data Vital Signs Vital Signs Date Time Temp Pulse Resp B/P (MAP) Pulse Ox O2 Delivery O2 Flow Rate FiO2 08/03/19 00:18 20 96 Room Air 08/02/19 22:03 97.6 71 151/76 (101) 97.6 Lab Values Laboratory Tests Test 08/02/19 22:14 White Blood Count 8.1 x10^3/uL (4.0-11.0) Red Blood Count 5.12 x10^6/uL (3.50-5.40) Hemoglobin 15.1 g/dL (12.0-15.5) Hematocrit 45.4 % (36.0-47.0) Mean Corpuscular Volume 89 fL (79-100) Mean Corpuscular Hemoglobin 30 pg (25-35) Mean Corpuscular Hemoglobin Concent 33 g/dL (31-37) Red Cell Distribution Width 14.9 % (11.5-14.5) H Platelet Count 236 x10^3/uL (140-400) Neutrophils (%) (Auto) 54 % (31-73) Lymphocytes (%) (Auto) 34 % (24-48) Monocytes (%) (Auto) 6 % (0-9) Eosinophils (%) (Auto) 5 % (0-3) H Basophils (%) (Auto) 1 % (0-3) Neutrophils # (Auto) 4.4 x10^3/uL (1.8-7.7) Lymphocytes # (Auto) 2.8 x10^3/uL (1.0-4.8) Monocytes # (Auto) 0.5 x10^3/uL (0.0-1.1) Eosinophils # (Auto) 0.4 x10^3/uL (0.0-0.7) Basophils # (Auto) 0.1 x10^3/uL (0.0-0.2) D-Dimer (Kym) 0.83 ug/mlFEU (0.00-0.50) H Sodium Level 140 mmol/L (136-145) Potassium Level 3.4 mmol/L (3.5-5.1) L Chloride Level 103 mmol/L (98-107) Carbon Dioxide Level 29 mmol/L (21-32) Anion Gap 8 (6-14) Blood Urea Nitrogen 23 mg/dL (7-20) H Creatinine 0.9 mg/dL (0.6-1.0) Estimated GFR (Cockcroft-Gault) 62.1 BUN/Creatinine Ratio 26 (6-20) H Glucose Level 138 mg/dL (70-99) H Calcium Level 10.2 mg/dL (8.5-10.1) H Total Bilirubin 0.3 mg/dL (0.2-1.0) Aspartate Amino Transferase (AST) 24 U/L (15-37) Alanine Aminotransferase (ALT) 20 U/L (14-59) Alkaline Phosphatase 103 U/L (46-116) Troponin I Quantitative < 0.017 ng/mL (0.000-0.055) Total Protein 7.6 g/dL (6.4-8.2) Albumin 3.7 g/dL (3.4-5.0) Albumin/Globulin Ratio 0.9 (1.0-1.7) L Laboratory Tests 08/02/19 22:14 Laboratory Tests 08/02/19 22:14 EKG EKG [EKG: Reviewed] Radiology/Procedures Radiology/Procedures [CT chest/chest x-ray: Radiology results reviewed.] Course & Med Decision Making Course & Med Decision Making Pertinent Labs and Imaging studies reviewed. (See chart for details) [Reproducible chest wall pain most consistent with pleurisy. Will treat supportively with PCP follow-up. Return precautions reviewed] Dragon Disclaimer Dragon Disclaimer This electronic medical record was generated, in whole or in part, using a voice recognition dictation system. Departure Departure Impression: Primary Impression: Chest wall pain Disposition: 01 HOME, SELF-CARE Condition: IMPROVED Referrals: NASRA MCDONALD MD (PCP) Patient Instructions: Pleurisy, [id number] Additional Instructions: You were evaluated in the emergency department for left-sided chest wall pain. Lab, EKG and imaging studies were performed and are non-diagnostic. The exact c ause of your symptoms has not been determined but may be consistent with pleurisy. Please take ibuprofen for pain and tramadol as needed for additional relief. Follow-up with your PCP for reevaluation in 2-3 days. Return to the ED if new or worsening symptoms. Scripts Tramadol Hcl (TRAMADOL HCL) 50 Mg Tablet 50 MG PO Q6H PRN for PAIN for 3 Days, #15 TAB 0 Refills Prov: JAMAAL AVILA DO 08/03/19 JAMAAL AVILA DO Aug 03, 2019 00:20
[2019-08-03] MEDS ORDERED: oxyCODONE/APAP 10/325 1 TAB TABLET PO ONE (00:30)
[2019-08-03] MEDS ORDERED: CONTRAST GIVEN. MC PRN (01:30)
[2019-08-03] MEDS ORDERED: IOHEXOL 350 MG/ML 100 ML VIAL. IV ONE (01:30)
--- NOTE | 2019-08-03 02:20 | RAD ---
EXAM: CT ANGIOGRAPHY OF THE CHEST WITH AND WITHOUT CONTRAST. HISTORY: Chest pain. Positive d-dimer. TECHNIQUE: Computed tomographic angiography of the chest was performed before and after the intravenous administration of iodinated contrast. 3-D maximum intensity projections were also performed. COMPARISON: 02/14/2016. FINDINGS: Images of the upper abdomen reveal a 1.9 cm cyst at the left renal upper pole. Bone windows reveal no suspicious lesions. No pulmonary emboli are identified. There is no aortic dissection or aneurysm. There are no pathologically enlarged mediastinal or axillary lymph nodes.. Calcified mediastinal lymph nodes are likely secondary to old granulomatous disease. There is no pleural or pericardial effusion. The heart is not enlarged. Lung windows reveal no infiltrates. There is mild dependent atelectasis. IMPRESSION: 1. No pulmonary embolism. No infiltrates. *One or more of the following individualized dose reduction techniques were utilized for this examination: 1. Automated exposure control. 2. Adjustment of the mA and/or kV according to patient size. 3. Use of iterative reconstruction technique. Electronically signed by: Tawny Perez MD (08/03/2019 2:17 AM) [facility]
--- NOTE | 2019-08-03 02:21 | RAD ---
EXAM: CHEST ONE VIEW. HISTORY: Chest pain, cough. COMPARISON: 12/20/2015. FINDINGS: A frontal view of the chest is obtained. Left hemidiaphragm is mildly elevated. There are no confluent infiltrates. There is no pneumothorax or pleural effusion. The heart is not enlarged. . Calcified mediastinal lymph nodes are likely secondary to old granulomatous disease. There is a calcified granuloma in the left upper lobe. IMPRESSION: 1. No confluent infiltrates. Electronically signed by: Tawny Perez MD (08/03/2019 2:18 AM) [facility]
[2019-08-03] MEDS ORDERED: TRAM50TA PO (02:30)
[2019-08-03 03:08] VITALS: BP 129/70
--- NOTE | 2019-08-03 06:34 | EKG ---
[facility] [address] [place] [address] Test Date: 2019-08-02 Test Time: 22:02:33 Pat Name: SONG BACK Department: Room: Gender: F Analytical Lead: : 1950 Requested By: JAMAAL AVILA Order Number: [id number] Reading MD: Al Ackerman MD Measurements Intervals [place] Rate: 81 P: 71 [place]: 166 QRS: 26 QRSD: 88 T: 34 QT: 384 QTc: 447 Interpretive Statements SINUS RHYTHM ATRIAL PREMATURE COMPLEX(ES) Electronically Signed On 08-12-2019 9:14:33 CDT by Al Ackerman MD
== END 2019-08-03 03:16 | disposition home or self-care (01) ==
LOC: ER 21:55
DX: R07.89 Other chest pain (principal); K21.9 Gastro-esophageal reflux disease without esophagitis; I10 Essential (primary) hypertension; Z90.710 Acquired absence of both cervix and uterus; Z98.51 Tubal ligation status; Z85.828 Personal history of other malignant neoplasm of skin; Z88.8 Allergy status to other drugs, medicaments and biological substances
CPT/HCPCS: 36415; 71045; 71275; 80053; 84484; 85025; 85379; 93005; 99285; Q9967

== ENCOUNTER 2019-08-24 16:08 | Emergency (ER) | payer MEDICARE, OTHER ==
[~2019-08-24] VITALS: Ht 165.1 cm; Wt 54.4 kg
[~2019-08-24 16:08] MED LIST changes: -VITA-8 PO; +VITA400C36 PO
[2019-08-24 16:38] VITALS: BP 165/95
[2019-08-24] MEDS ORDERED: HYDROcodone/APAP 5/325MG 1 TAB TABLET PO ONE (16:45)
--- NOTE | 2019-08-24 16:50 | PHYS DOC ---
Past Medical History Past Medical History: Cancer, Depression, GERD, High Cholesterol, Hypertension Additional Past Medical Histor: skin CA (KIM BARRERA APRN) Past Surgical History: Hysterectomy, Tubal ligation, Other Additional Past Surgical Histo: throat surg nos, (KIM BARRERA APRN) Alcohol Use: Rarely Drug Use: None (KIM BARRERA APRN) Attending Signature I have participated in the care of this patient and I have reviewed and agree with all pertinent clinical information above including history, exam, and recommendations. (SIMRAN MIN MD) Adult General Chief Complaint Chief Complaint: MECHANICAL FALL HPI HPI Patient is a 68 year old female who presents with states she tripped over a basket and fell into a microwave cabinet last night. Patient states that she did fall down to the floor but did not hurt anything else and did not hit her head. Patient denies LOC. Patient complains of right shoulder pain. Patient rates her pain 8 out of 10 and states the sharp pain but nonradiating. (KIM BARRERA APRN) Review of Systems Review of Systems Musculoskeletal: Denies back pain. Right shoulder joint pain [] All other systems were reviewed and found to be within normal limits, except as documented in this note. (KIM BARRERA APRN) Current Medications Current Medications Current Medications Medications (Trade) Dose Ordered Sig/Caryn Start Time Stop Time Status Last Admin Dose Admin Acetaminophen/ Hydrocodone Bitart (Lortab 5/325) 1 tab 1X ONCE 08/24/19 16:45 08/24/19 16:46 DC 08/24/19 17:07 1 TAB (SIMRAN MIN MD) Allergies Allergies Allergies Coded Allergies Type Severity Reaction Last Updated Verified niacin Adverse Reaction Intermediate nausea 04/23/19 No (SIMRAN MIN MD) Physical Exam Physical Exam Constitutional: Well developed, well nourished, no acute distress, non-toxic appearance. [] HENT: Normocephalic, atraumatic, bilateral external ears normal, oropharynx moist, no oral exudates, nose normal. [] Eyes: PERRLA, EOMI, conjunctiva normal, no discharge. [] Neck: Normal range of motion, no tenderness, supple, no stridor. [] Skin: Warm, dry, no erythema, no rash. [] Back: No tenderness, no CVA tenderness. [] Extremities: Right shoulder tenderness, no cyanosis, no clubbing, Right shoulder ROM not intact due to pain, no edema. [] Neurologic: Alert and oriented X 3, normal motor function, normal sensory function, no focal deficits noted. [] Psychologic: Affect normal, judgement normal, mood normal. [] (KIM BARRERA APRN) Current Patient Data Vital Signs Vital Signs Date Time Temp Pulse Resp B/P (MAP) Pulse Ox O2 Delivery O2 Flow Rate FiO2 08/24/19 16:38 97.5 110 20 165/95 (118) 96 Room Air 97.5 (SIMRAN MIN MD) EKG EKG [] (KIM BARRERA APRN) Radiology/Procedures Radiology/Procedures [] (KIM BARRERA APRN) Impressions: [facility] [address] [place] [address] IMAGING REPORT Signed PATIENT: SONG BACK ACCOUNT: [id number] : 1950 LOCATION: ER AGE: 68 SEX: F EXAM STATUS: REG ER ORD. PHYSICIAN: KIM BARRERA APRN REASON: pain, fall PROCEDURE: SHOULDER 2+V RIGHT Three-view right shoulder radiographs 08/24/2019 CLINICAL HISTORY: Right shoulder pain post fall. AP internal and external rotation and transscapular digital radiographs of the right shoulder were obtained. There is diffuse osteopenia of the visualized bony structures. No fracture or dislocation of the right shoulder is seen. Mild to moderate degenerative changes are seen involving the right AC joint and right glenohumeral joint. IMPRESSION: No fracture or dislocation of the right shoulder is seen. Electronically signed by: Jitendra Vanegas MD (08/24/2019 6:26 PM) [facility] DICTATED and SIGNED BY: JITENDRA VANEGAS MD DATE: 08/24/19 182 (KIM BARRERA APRN) Course & Med Decision Making Course & Med Decision Making Denies numbness or tingling. Skin pink warm and dry. There is no deformity, bruising, swelling, abrasion to the right shoulder. No tenderness, bruising, s welling, abrasion to the right arm, wrist or hand. Radial pulse strong and present. Cap refill less than 3 seconds. No laxity in the shoulder joint, elbow joint or wrist joint. Patient can wiggle all fingers. Patient has range of motion in the shoulder but is very painful. Patient is able to raise it shoulder height before it gets too painful and cannot lift it further in all directions. Tenderness to the acromioclavicular joint only. Patient denies neck or back pain. There is no tenderness with palpation to the neck or the back. Patient has full range of motion of her neck. PERRLA. Patient denies chest pain, soa, abdominal pain, nausea, vomiting, visual changes, dizziness, headache. (KIM BARRERA APRN) Dragon Disclaimer Dragon Disclaimer This electronic medical record was generated, in whole or in part, using a voice recognition dictation system. (KIM BARRERA APRN) Departure Departure Impression: Primary Impression: Shoulder contusion Disposition: HOME, SELF-CARE Condition: STABLE Referrals: NASRA MCDONALD MD (PCP) Patient Instructions: Contusion, Shoulder Pain Additional Instructions: Follow up with primary care provider. Use ice to help with pain or swelling. Scripts Hydrocodone/Apap 5-325 (NORCO 5-325 TABLET) 1 Each Tablet 1 TAB PO PRN Q6HRS PRN for PAIN, #8 TAB 0 Refills Prov: KIM BARRERA APRN 08/24/19 Problem Qualifiers Primary Impression: Shoulder contusion Encounter type: initial encounter Laterality: right Qualified Codes: S40.011A - Contusion of right shoulder, initial encounter KIM BARRERA APRN Aug 24, 2019 16:50 SIMRAN MIN MD Aug 25, 2019 06:10
--- NOTE | 2019-08-24 18:29 | RAD ---
Three-view right shoulder radiographs 08/24/2019 CLINICAL HISTORY: Right shoulder pain post fall. AP internal and external rotation and transscapular digital radiographs of the right shoulder were obtained. There is diffuse osteopenia of the visualized bony structures. No fracture or dislocation of the right shoulder is seen. Mild to moderate degenerative changes are seen involving the right AC joint and right glenohumeral joint. IMPRESSION: No fracture or dislocation of the right shoulder is seen. Electronically signed by: Jitendra Vanegas MD (08/24/2019 6:26 PM) [facility]
[2019-08-24] MEDS ORDERED: HYDR-3164 PO (18:37)
== END 2019-08-24 18:42 | disposition home or self-care (01) ==
LOC: ER 16:08
DX: S40.011A Contusion of right shoulder, initial encounter (principal); K21.9 Gastro-esophageal reflux disease without esophagitis; E78.00 Pure hypercholesterolemia, unspecified; I10 Essential (primary) hypertension; Z88.8 Allergy status to other drugs, medicaments and biological substances; W18.09XA Striking against other object with subsequent fall, initial encounter; Y93.89 Activity, other specified; Y92.89 Other specified places as the place of occurrence of the external cause; Y99.8 Other external cause status
CPT/HCPCS: 73030; 99284